=== PATIENT | female | born 1990 ===

== ENCOUNTER 2020-11-04 10:37 | Inpatient (IN) | payer OTHER ==
[~2020-11-04] VITALS: Ht 154.9 cm; Wt 83.5 kg
[2020-11-04] MEDS ORDERED: PRENATAL CAPLE1 EAC1 PO (11:14)
[2020-11-04] MEDS ORDERED: SYNTHROID150 MCG PO (11:14)
== END 2020-11-05 13:43 | disposition home or self-care (01) | DRG 806 ==
LOC: LDR 10:37 → OB/GYN 16:27
PROVIDERS: ADMIT Obstetrics & Gynecology; ATTEND Obstetrics & Gynecology
PROC: 10E0XZZ Delivery of Products of Conception, External Approach (ICD-10-PCS; principal; 2020-11-04)
PROC: 4A1HXFZ Monitoring of Products of Conception, Cardiac Rhythm, External Approach (ICD-10-PCS; 2020-11-04)
DX: O42.012 Preterm premature rupture of membranes, onset of labor within 24 hours of rupture, second trimester (principal); O36.4XX0 Maternal care for intrauterine death, not applicable or unspecified; Z37.1 Single stillbirth; Z3A.22 22 weeks gestation of pregnancy